=== PATIENT | female | born 1990 | race Caucasian/White ===

== ENCOUNTER 2017-10-29 04:31 | Emergency (ER) ==
[2017-10-29 04:54] VITALS: BP 168/77; TEMP 99.4; BMI 22.8
[2017-10-29] MEDS ORDERED: TORADOL IM STA (05:14)
[2017-10-29] MEDS ORDERED: NORFLEX IM STA (05:14)
--- NOTE | 2017-10-29 05:18 | ED.PDOC ---
General ED Provider: Dr. ANJALI HUTCHISON Chief Complaint: Neck Pain Non-Injury Stated Complaint: Neck pain, hurts to turn right side, no injury Time Seen by Physician: 05:15 Mode of Arrival: Walk-In Information Source: Patient Primary Care Provider: MARIYA MONK Nursing and Triage Documentation Reviewed and Agree: Yes Reviewed sepsis parameters & appropriate labs ordered?: No System Inflammatory Response Syndrome: Not Applicable Sepsis Protocol: For patient's 13 years and over: Temp is 96.8 and below OR 101 and greater Pulse >90 BPM Resp >20/minute Acutely Altered Mental Status Are patient's symptoms suggestive of a new infection, such as: -Pneumonia -Skin, Soft Tissue -Endocarditis -UTI -Bone, Joint Infection -Implantable Device -Acute Abdominal Infection -Wound Infection -Meningitis -Blood Stream Catheter Infection -Unknown Musculoskeletal Complaint Exam - Neck Pain Complaint/Exam Mechanism of Injury: Reports: No known trauma Symptoms Are: Still present Timing: Constant Initial Severity: Moderate Current Severity: Moderate Location: Reports: Discrete Character: Reports: Aching, Throbbing Aggravating: Reports: Position, Movement Alleviating: Reports: None Associated Signs and Symptoms: Denies: Swelling, Redness, Bruising, Fever, Nuchal rigidity, Weakness, Headache, Paresthesia Meningitis Risk Factors: Reports: None Cervical Spine Injury Risk Factors: Reports: None Related Surgical History: Reports: None Carotid Bruit Present: No Pain on Passive Flexion: No Positive Kernig's Sign: No ROM Limited In: Present: Right, Side bending Tenderness: Present: Paraspinal (rt side) Radiates to: Present: Other (none) Focal Weakness: Present: None Focal Sensory Loss: Reports: None Differential Diagnoses: Sprain Review of Systems - Review Of Systems Constitutional: Reports: No symptoms Eyes: Reports: No symptoms Ears, Nose, Mouth, Throat: Reports: No symptoms Respiratory: Reports: No symptoms Cardiac: Reports: No symptoms GI: Reports: No symptoms : Reports: No symptoms Musculoskeletal: Reports: Neck pain Skin: Reports: No symptoms Neurological: Reports: No symptoms Endocrine: Reports: No symptoms Hematologic/Lymphatic: Reports: No symptoms All Other Systems: Reviewed and Negative Past Medical History - Past Medical History Previously Healthy: Yes Endocrine: Reports: None Cardiovascular: Reports: None Respiratory: Reports: None Hematological: Reports: Anemia Gastrointestinal: Reports: None Genitourinary: Reports: None Neuro/Psych: Reports: None Musculoskeletal: Reports: None Cancer: Reports: None Last Menstrual Period: 1 MONTH AGO - Surgical History General Surgical History: Reports: None - Family History Family History: Reports: None - Social History Smoking Status: Vaping Hx Substance Use: No Alcohol Screening: None - Immunizations Tetanus Shot up to Date: Yes Physical Exam - Physical Exam Appearance: Well-appearing, No pain distress, Well-nourished Eyes: AMER[place], EOMI, Conjunctiva clear ENT: Ears normal, Nose normal, Oropharynx normal Respiratory: Airway patent, Breath sounds clear, Breath sounds equal, Respirations nonlabored Cardiovascular: RRR, Pulses normal, No rub, No murmur GI/: Soft, Nontender, No masses, Bowel sounds normal, No Organomegaly Musculoskeletal: ROM intact, No edema, No calf tenderness, Limited ROM Skin: Warm, Dry, Normal color Neurological: Sensation intact, Motor intact, Reflexes intact, Cranial nerves intact, Alert, Oriented Psychiatric: Affect appropriate, Mood appropriate Interpretation - Radiology Interpretation Radiology Interpretation By: Radiologist Radiology Results: Negative Critical Care Note - Critical Care Note Total Time (mins): 20 Course - Course Orders, Labs, Meds: Orders Category Date Time Status Ketorolac Tromethamine [Toradol] MEDS 10/29/17 05:14 Discontinued 30 mg IM ONCE STA Orphenadrine Citrate [Norflex] MEDS 10/29/17 05:14 Discontinued 60 mg IM ONCE STA CERVICAL SPINE, 2 OR 3 VIEWS Stat RADS 10/29/17 05:14 Completed Medications Discontinued Medications Generic Name Dose Route Start Last Admin Trade Name Freq PRN Reason Stop Dose Admin Ketorolac Tromethamine 30 mg 10/29/17 05:14 10/29/17 05:23 Toradol IM 10/29/17 05:15 30 mg ONCE STA Administration Orphenadrine Citrate 60 mg 10/29/17 05:14 10/29/17 05:23 Norflex IM 10/29/17 05:15 60 mg ONCE STA Administration Vital Signs: Temp Pulse Resp BP Pulse Ox 10/29/17 04:32 99.4 F 84 20 168/77 H 96 Departure - Departure Time of Disposition: 05:20 Disposition: HOME SELF-CARE Discharge Problem: Acute neck sprain Qualifiers: Encounter type: initial encounter Qualified Code(s): S13.9XXA - Sprain of joints and ligaments of unspecified parts of neck, initial encounter Instructions: Cervical Strain (ED) Condition: Stable Pt referred to PMD for follow-up: Yes IPMP verified?: Yes Additional Instructions: Hot pack, Rest if not better needs further evaluation Prescriptions: Cyclobenzaprine HCl [Flexeril] 5 mg PO BID #14 tablet Hydrocodone/Acetaminophen [[place] 5-325 Tablet] 1 tab PO TID PRN #9 tablet PRN Reason: PAIN Allergies/Adverse Reactions: Allergies No Known Drug Allergies Adverse Reaction (Verified 10/29/17 04:45) Home Medications: Ambulatory Orders Cyclobenzaprine HCl [Flexeril] 5 mg PO BID #14 tablet 10/29/17 Ferrous Sulfate [High Potency Iron] 27 mg PO BID 10/29/17 Hydrocodone/Acetaminophen [[place] 5-325 Tablet] 1 tab PO TID PRN #9 tablet Disposition Discussed With: Patient
--- NOTE | 2017-10-29 05:48 | DI ---
Exam: Cervical spine three-view History: Right neck pain FINDINGS: Cervical spine shows normal alignment. Vertebral body height and disc space height mainta ined. No facet or endplate degenerative changes. Normal prevertebral soft tissues. Impression: Normal cervical spine
== END 2017-10-29 05:54 | disposition home or self-care (01) ==
LOC: ED 04:31
DX: S13.9XXA Sprain of joints and ligaments of unspecified parts of neck, initial encounter (principal)
CPT/HCPCS: 96372; 99282